=== PATIENT | female | born 1980 | race Caucasian/White ===

== ENCOUNTER 2017-06-20 17:42 | Emergency (ER) | payer MEDICAID ==
[~2017-06-20] VITALS: Ht 165.1 cm; Wt 64.0 kg
[2017-06-20 19:34] LABS: BASOPHILS % 0.2 % (0.0-2.0); EOSINOPHILS % 0.5 % (0.0-5.0); HEMOGLOBIN. 11.8 g/dL (12.0-16.0); MEAN CORPUSCULAR HEMOGLOBIN 28.5 pg (28.0-32.0); MEAN CORPUSCULAR VOLUME 84.9 fL (81.0-99.0); MEAN PLATELET VOLUME 8.4 fl (7.4-10.4); MONOCYTES % 6.8 % (2.0-8.0); NEUTROPHILS % 66.5 % (40.0-76.0); PLATELET 197 x1000/uL (130-400); RED BLOOD CELL COUNT 4.12 mill/uL (4.2-5.4); RED CELL DISTRIBUTION WIDTH 13.8 % (11.6-14.6)
[2017-06-20 22:13] VITALS: BP 136/71
== END 2017-06-20 22:14 | disposition home or self-care (01) ==
LOC: ER 21:54
DX: O36.4XX0 Maternal care for intrauterine death, not applicable or unspecified (principal); Z3A.19 19 weeks gestation of pregnancy
CPT/HCPCS: 36415; 76815; 84702; 85025; 86850; 86900; 86901; 99285; Z7610

== ENCOUNTER 2017-06-22 09:21 | Emergency (ER) | payer MEDICAID ==
[~2017-06-22] VITALS: Ht 160 cm; Wt 65.0 kg
[2017-06-22 09:30] VITALS: BP 109/69
== END 2017-06-22 15:14 | disposition home or self-care (01) ==
LOC: ER 14:00
DX: O36.4XX0 Maternal care for intrauterine death, not applicable or unspecified (principal); Z37.9 Outcome of delivery, unspecified; Z3A.00 Weeks of gestation of pregnancy not specified
CPT/HCPCS: 81025; 99282

== ENCOUNTER 2017-06-25 14:26 | Inpatient (IN) | payer MEDICAID ==
[~2017-06-25] VITALS: Ht 152.4 cm; Wt 62.6 kg
[2017-06-25 19:59] LABS: BASOPHILS % 0.2 % (0.0-2.0); EOSINOPHILS % 0.4 % (0.0-5.0); HEMATOCRIT. 35.4 % (36.0-48.0); HEMOGLOBIN. 11.8 g/dL (12.0-16.0); LYMPHOCYTES % 25.8 % (20.0-50.0); MEAN CORPUSCULAR HEMOGLOBIN 28.3 pg (28.0-32.0); MEAN CORPUSCULAR VOLUME 85.1 fL (81.0-99.0); MEAN PLATELET VOLUME 8.1 fl (7.4-10.4); MONOCYTES % 5.7 % (2.0-8.0); NEUTROPHILS % 67.9 % (40.0-76.0); PLATELET 190 x1000/uL (130-400); RED BLOOD CELL COUNT 4.16 mill/uL (4.2-5.4); RED CELL DISTRIBUTION WIDTH 13.7 % (11.6-14.6)
[2017-06-25 20:04] LABS: CHLORIDE 107 mEq/L (98-107)
[2017-06-25 20:08] LABS: PARTIAL THROMBOPLASTIN TIME 27.3 sec (23.4-31.0); PROTHROMBIN TIME 10.6 sec (9.4-11.6)
[2017-06-25 20:12] LABS: CARBON DIOXIDE 25 mEq/L (21-32)
[2017-06-25 20:30] LABS: CLARITY URINE CLEAR (CLEAR); COLOR URINE YELLOW (YELLOW); GLUCOSE URINE NEGATIVE (NEGATIVE); KETONES URINE 4+ (NEGATIVE); LEUKOCYTE ESTERASE URINE NEGATIVE (NEGATIVE); NITRITE URINE NEGATIVE (NEGATIVE); OCCULT BLOOD URINE NEGATIVE (NEGATIVE); PH URINE 6.5 (4.5-8.0); PROTEIN URINE NEGATIVE (NEGATIVE); SPECIFIC GRAVITY URINE 1.023 (1.005-1.030); UROBILINOGEN URINE 0.2 E.U./dL (0.2-1.0)
[2017-06-25 23:15] VITALS: BP 95/52
[2017-06-26] VITALS: BP 95/52
[2017-06-26] MEDS ORDERED: BUTORPHANOL TARTRATE 2 MG/ML VIAL IM PRN (00:45)
[2017-06-26] MEDS ORDERED: ONDANSETRON HCL 4MG/2ML VIAL IV PRN (00:45)
[2017-06-26] MEDS: DEXT 5%/LACTATED RINGERS 1,000 ML IV SCH ×3 (01:33→13:29)
[2017-06-26] MEDS ORDERED: PNV1TABL76 PO (01:52)
[2017-06-26 04:00] VITALS: BP 93/51
[2017-06-26] MEDS: MISOPROSTOL 100MCG TABLET VG SCH ×4 (04:26→16:00)
[2017-06-26 07:25] LABS: PARTIAL THROMBOPLASTIN TIME 27.5 sec (23.4-31.0); PROTHROMBIN TIME 10.8 sec (9.4-11.6)
[2017-06-26 07:38] LABS: BASOPHILS % 0.3 % (0.0-2.0); HEMATOCRIT. 35.6 % (36.0-48.0); HEMOGLOBIN. 12.1 g/dL (12.0-16.0); LYMPHOCYTES % 28.3 % (20.0-50.0); MEAN CORPUSCULAR HEMOGLOBIN 28.7 pg (28.0-32.0); MEAN CORPUSCULAR VOLUME 84.1 fL (81.0-99.0); MEAN PLATELET VOLUME 8.8 fl (7.4-10.4); MONOCYTES % 7.6 % (2.0-8.0); NEUTROPHILS % 62.8 % (40.0-76.0); PLATELET 180 x1000/uL (130-400); RED BLOOD CELL COUNT 4.23 mill/uL (4.2-5.4); RED CELL DISTRIBUTION WIDTH 13.3 % (11.6-14.6)
[2017-06-26 08:00] VITALS: BP 98/55
[2017-06-26 12:00] VITALS: BP 110/49
[2017-06-26] MEDS ORDERED: SODIUM CHLORIDE 0.9% 1000ML BAG (SEPSIS BOLUS) IV ONE (12:00)
[2017-06-26] MEDS: IBUPROFEN 800MG TABLET PO PRN ×2 (12:05→17:49)
[2017-06-26] MEDS ORDERED: SODIUM CHLORIDE 0.9% 500ML IV NR (12:30)
[2017-06-26 16:00] VITALS: BP 114/65
[2017-06-26] MEDS ORDERED: MISOPROSTOL 100MCG TABLET PO SCH (19:00)
[2017-06-26 20:00] VITALS: BP 111/62
[2017-06-26] MEDS ORDERED: MISOPROSTOL 100MCG TABLET VG SCH (20:00)
[2017-06-26] MEDS ORDERED: PROPOFOL 200MG/20ML VIAL IV ONE (22:01)
[2017-06-26] MEDS ORDERED: FENTANYL CITRATE/PF 50MCG/ML 2ML VIAL ONE (22:01)
[2017-06-26] MEDS ORDERED: LIDOCAINE HCL 1% 20ML VIAL (Pyxis) INJ ONE (22:02)
[2017-06-26] MEDS ORDERED: SODIUM CHLORIDE 0.9% 10ML VIAL ONE (22:12)
[2017-06-26] MEDS ORDERED: CEFAZOLIN SODIUM 1000MG/VIAL ONE (22:12)
[2017-06-26] MEDS ORDERED: OXYTOCIN 10 UNITS/ML 1ML ONE (22:18)
[2017-06-26] MEDS ORDERED: ONDANSETRON HCL 4MG/2ML VIAL ONE (22:20)
[2017-06-26] MEDS ORDERED: METOCLOPRAMIDE HCL 10MG/2ML VIAL ONE (22:20)
[2017-06-26] MEDS ORDERED: RHO(D) IMMUNE GLOBULIN 300 MCG/SYR IM NR (22:45)
[2017-06-26] MEDS ORDERED: IBUPROFEN 800MG TABLET PO PRN (22:45)
[2017-06-26] MEDS ORDERED: MORPHINE SULFATE 4 MG/ML CPJ (NOT FOR IM USE) IV PRN (23:00)
[2017-06-27] VITALS: BP 108/56
[2017-06-27 04:00] VITALS: BP 91/55
[2017-06-27] MEDS: DEXT 5%/LACTATED RINGERS 1,000 ML IV SCH (06:17)
[2017-06-27 08:00] VITALS: BP 115/64
[2017-06-27 12:00] VITALS: BP 93/53
[2017-06-27 12:44] VITALS: BP 110/60
== END 2017-06-27 13:27 | disposition home or self-care (01) | DRG 541 ==
LOC: ER 17:55 → 6EST 20:25 → ENRESERV 22:15
PROVIDERS: ADMIT Obstetrics & Gynecology; ATTEND Obstetrics & Gynecology
PROC: 10D17ZZ Extraction of Products of Conception, Retained, Via Natural or Artificial Opening (ICD-10-PCS; principal; 2017-06-26 22:00)
DX: O36.4XX0 Maternal care for intrauterine death, not applicable or unspecified (principal); Z37.1 Single stillbirth; O72.0 Third-stage hemorrhage; Z3A.19 19 weeks gestation of pregnancy
CPT/HCPCS: 36415; 36430; 80048; 81003; 85025; 85610; 85730; 88305; 99285; A4216; J0595; J0690; J2405; J2704; J2765; J3010; J3490; J7040; J7120; J7121

== ENCOUNTER 2018-08-09 17:30 | Emergency (ER) | payer MEDICAID ==
[~2018-08-09] VITALS: Ht 157.5 cm; Wt 64.0 kg
[~2018-08-09 17:30] MED LIST: PNV1TABL76 PO
[2018-08-09 19:41] LABS: CLARITY URINE CLEAR (CLEAR); COLOR URINE YELLOW (YELLOW); KETONES URINE NEGATIVE (NEGATIVE); LEUKOCYTE ESTERASE URINE TRACE (NEGATIVE); NITRITE URINE NEGATIVE (NEGATIVE); OCCULT BLOOD URINE 2+ (NEGATIVE); PROTEIN URINE NEGATIVE (NEGATIVE); SPECIFIC GRAVITY URINE 1.016 (1.005-1.030); UROBILINOGEN URINE 0.2 E.U./dL (0.2-1.0)
[2018-08-09 19:51] LABS: *AMPHETAMINES SCREEN URINE NEGATIVE (NEGATIVE); *BARBITURATES SCREEN URINE NEGATIVE (NEGATIVE); *BENZODIAZEPINES SCREEN URINE NEGATIVE (NEGATIVE)
[2018-08-09 19:52] LABS: *COCAINE SCREEN URINE NEGATIVE (NEGATIVE); CANNABINOID URINE SCREEN NEGATIVE (NEGATIVE); METHADONE URINE SCREEN NEGATIVE (NEGATIVE); OPIATES URINE SCREEN NEGATIVE (NEGATIVE); PHENCYCLIDINE URINE SCREEN NEGATIVE (NEGATIVE)
[2018-08-09 20:07] LABS: BASOPHILS % 0.2 % (0.0-2.0); EOSINOPHILS % 0.5 % (0.0-5.0); HEMATOCRIT. 39.5 % (36.0-48.0); MEAN CORPUSCULAR VOLUME 85.1 fL (81.0-99.0); MEAN PLATELET VOLUME 8.7 fl (7.4-10.4); MONOCYTES % 8.2 % (2.0-8.0); NEUTROPHILS % 65.1 % (40.0-76.0); PLATELET 207 x1000/uL (130-400); RED BLOOD CELL COUNT 4.64 mill/uL (4.2-5.4); RED CELL DISTRIBUTION WIDTH 13.9 % (11.6-14.6)
[2018-08-09 20:11] LABS: CHLORIDE 107 mEq/L (98-107)
[2018-08-09 20:36] LABS: B-HCG QUANTITATIVE 1438 mIU/mL (<3)
[2018-08-09 22:29] VITALS: BP 107/57
[2018-08-09] MEDS ORDERED: NITROFURANTOIN 100MG M/M CAPSULE PO ONE (22:30)
== END 2018-08-10 00:10 | disposition home or self-care (01) ==
LOC: ER 17:30
DX: O02.1 Missed abortion (principal); O08.83 Urinary tract infection following an ectopic and molar pregnancy; N39.0 Urinary tract infection, site not specified; R31.9 Hematuria, unspecified; E86.0 Dehydration; N17.0 Acute kidney failure with tubular necrosis; D72.821 Monocytosis (symptomatic); R61 Generalized hyperhidrosis; R10.2 Pelvic and perineal pain; Z98.890 Other specified postprocedural states
CPT/HCPCS: 36415; 76801; 80305; 81025; 84702; 93005; 99285